=== PATIENT | female | born 2000 ===

== ENCOUNTER 2021-09-17 19:38 | Emergency (ER) | payer OTHER ==
[~2021-09-17] VITALS: Ht 162.6 cm; Wt 65.8 kg
[~2021-09-17 19:38] MED LIST: IBUP800 PO
[2021-09-17] MEDS ORDERED: Voltaren100 GM TOP (23:16)
[2021-09-17] MEDS ORDERED: LIDO700A20 TOP (23:16)
== END 2021-09-17 23:40 | disposition home or self-care (01) ==
LOC: ER 19:38
DX: S80.02XA Contusion of left knee, initial encounter (principal); S83.92XA Sprain of unspecified site of left knee, initial encounter; W19.XXXA Unspecified fall, initial encounter; Y92.73 Farm field as the place of occurrence of the external cause
CPT/HCPCS: 73700; J1885